=== PATIENT | female | born 1965 ===

== ENCOUNTER 2016-08-08 09:31 | Emergency (ER) | payer MEDICAID, SELFPAY ==
[2016-08-08 09:43] VITALS: BMI 30.2
[2016-08-08 10:44] LABS: RBC URINE 1 /hpf (0-3); URINE BILIRUBIN NEGATIVE (NEGATIVE); URINE BLOOD NEGATIVE (NEGATIVE); URINE COLOR Yellow (YELLOW); URINE GLUCOSE (UA) NORMAL (Normal); URINE KETONE NEGATIVE (NEGATIVE); URINE LEUKOCYTE ESTERASE TRACE Leu/uL (Negative); URINE PROTEIN NEGATIVE (NEGATIVE); URINE UROBILINOGEN NORMAL mg/dL (0.2-1.0); WBC URINE 4 /hpf (0-5)
--- NOTE | 2016-08-08 10:52 | C.PDOC ---
Time Seen by Provider: 08/08/16 10:36 Chief Complaint (Nursing): Female Genitourinary Past Medical History Vital Signs: Last Vital Signs Temp 98.1 F 08/08/16 09:43 Pulse 72 08/08/16 09:43 Resp 16 08/08/16 09:43 BP 162/82 H 08/08/16 09:43 Pulse Ox 100 08/08/16 09:43 Family History: States: Unknown Family Hx - Social History Hx Tobacco Use: No Hx Alcohol Use: No Hx Substance Use: No - Immunization History Hx Tetanus Toxoid Vaccination: No Hx Influenza Vaccination: No Hx Pneumococcal Vaccination: No ED Course And Treatment O2 Sat by Pulse Oximetry: 100
--- NOTE | 2016-08-08 12:05 | C.PDOC ---
History Of Present Illness 51 year old patient presents to the ED complaining of right hip pain radiating to the right heel since yesterday. Patient denies any trauma, fever, numbness, weakness, or incontinence. Time Seen by Provider: 08/08/16 10:36 Chief Complaint (Nursing): Female Genitourinary History Per: Patient History/Exam Limitations: language barrier (ER nurse translated) Onset/Duration Of Symptoms: Days (yesterday) Current Symptoms Are (Timing): Still Present Quality Of Discomfort: "Pain" Severity: Mild Pain Scale Rating Of: 3 Associated Symptoms: None Recent travel outside of the [place]: No Past Medical History Reviewed: Historical Data, Nursing Documentation, Vital Signs Vital Signs: Last Vital Signs Temp 98.1 F 08/08/16 09:43 Pulse 72 08/08/16 09:43 Resp 16 08/08/16 09:43 BP 162/82 H 08/08/16 09:43 Pulse Ox 100 08/08/16 12:05 Family History: States: Unknown Family Hx - Social History Hx Tobacco Use: No Hx Alcohol Use: No Hx Substance Use: No - Immunization History Hx Tetanus Toxoid Vaccination: No Hx Influenza Vaccination: No Hx Pneumococcal Vaccination: No Review Of Systems Except As Marked, All Systems Reviewed And Found Negative. Constitutional: Negative for: Fever Respiratory: Negative for: Shortness of Breath Genitourinary: Negative for: Incontinence Musculoskeletal: Positive for: Other (right hip pain radiating down right leg) Neurological: Negative for: Weakness, Numbness Physical Exam - Physical Exam Appears: Non-toxic, No Acute Distress Skin: Warm, Dry Head: Atraumatic, Normacephalic Neck: Normal ROM, Supple Chest: Symmetrical Cardiovascular: Rhythm Regular Respiratory: Normal Breath Sounds, No Rales, No Rhonchi, No Wheezing Gastrointestinal/Abdominal: Soft, No Tenderness Back: Normal Inspection, No CVA Tenderness, No Vertebral Tenderness Extremity: Normal ROM, No Tenderness, No Pedal Edema, No Calf Tenderness, No Deformity, No Swelling Neurological/Psych: Oriented x3, Normal Motor, Normal Sensation Gait: Steady ED Course And Treatment O2 Sat by Pulse Oximetry: 100 (room air) Pulse Ox Interpretation: Normal - Other Rad r hip X-Ray: Interpreted by Me (neg) Reevaluation Time: 12:03 Reassessment Condition: Improved Disposition Counseled Patient/Family Regarding: Studies Performed, Diagnosis, Need For Followup, Rx Given - Disposition Referrals: [facility] [Outside] [facility] [Outside] Disposition: HOME/ ROUTINE Disposition Time: 12:03 Condition: IMPROVED Prescriptions: Cyclobenzaprine [Flexeril] 10 mg PO TID #15 tab Dexamethasone 12 mg PO ONCE #2 tab Ibuprofen [Motrin] 600 mg PO Q6 #30 tab Instructions: Sciatica (ED) Print Language: PUERTO RICAN - Clinical Impression Clinical Impression: Hip pain - Scribe Statement The provider has reviewed the documentation as recorded by the Dara Koch Provider Attestation: All medical record entries made by the Marleneibcarol were at my direction and personally dictated by me. I have reviewed the chart and agree that the record accurately reflects my personal performance of the history, physical exam, medical decision making, and the department course for this patient. I have also personally directed, reviewed, and agree with the discharge instructions and disposition.
[2016-08-08 12:13] VITALS: BP 171/96; PULSE 63; RESP 18; TEMP 97.4
[2016-08-08 12:16] VITALS: O2SAT 100
--- NOTE | 2016-08-08 12:31 | RAD ---
PROCEDURE: Right Hip Radiographs. HISTORY: pain COMPARISON: None. FINDINGS: BONES: Normal. No fracture. JOINTS: Mild osteoarthritic changes. SOFT TISSUES: Normal. OTHER FINDINGS: None. IMPRESSION: Normal radiographs of right hip.
== END 2016-08-08 12:13 | disposition home or self-care (01) ==
LOC: C.ER 09:31
DX: M25.551 Pain in right hip (principal)
CPT/HCPCS: 73502; 81001; 87086; 96372; 99284; J1885

== ENCOUNTER 2016-08-15 11:14 | Emergency (ER) | payer SELFPAY ==
[2016-08-15 11:15] VITALS: BMI 30.2
[2016-08-15 11:31] VITALS: BP 158/84; PULSE 67; RESP 16; TEMP 98.5; O2SAT 99
[2016-08-15 12:24] LABS: RBC URINE 2 /hpf (0-3); URINE BILIRUBIN NEGATIVE (NEGATIVE); URINE BLOOD NEGATIVE (NEGATIVE); URINE COLOR Yellow (YELLOW); URINE GLUCOSE (UA) NORMAL (Normal); URINE KETONE NEGATIVE (NEGATIVE); URINE LEUKOCYTE ESTERASE NEG Leu/uL (Negative); URINE PROTEIN NEGATIVE (NEGATIVE); URINE UROBILINOGEN NORMAL mg/dL (0.2-1.0); WBC URINE 3 /hpf (0-5)
--- NOTE | 2016-08-15 12:41 | C.PDOC ---
Time Seen by Provider: 08/15/16 11:48 Chief Complaint (Nursing): Female Genitourinary Past Medical History Vital Signs: Last Vital Signs Temp 98.5 F 08/15/16 11:30 Pulse 67 08/15/16 11:30 Resp 16 08/15/16 11:30 BP 158/84 H 08/15/16 11:30 Pulse Ox 99 08/15/16 11:30 Family History: States: Unknown Family Hx - Social History Hx Tobacco Use: No Hx Alcohol Use: No Hx Substance Use: No - Immunization History Hx Tetanus Toxoid Vaccination: No Hx Influenza Vaccination: No Hx Pneumococcal Vaccination: No ED Course And Treatment O2 Sat by Pulse Oximetry: 99 Disposition Counseled Patient/Family Regarding: Diagnosis, Need For Followup, Rx Given - Disposition Disposition: HOME/ ROUTINE Disposition Time: 12:36 Condition: STABLE Additional Instructions: Aplicar crema gosia veces por semana para hidratar Use lubricante segn sea necesario... Prescriptions: Glycerin/Min Oil/Polycarbophil [Feminine Moist-Lubricating Gel] 53.6 gm VG PRN PRN #1 gel.w.appl PRN Reason: Dry Skin Glycerin/Min Oil/Polycarbophil [Replens] 1 cre VG Q72 #1 cre Instructions: Menopause (ED) Print Language: K[place] - Clinical Impression Clinical Impression: Vaginal atrophy
--- NOTE | 2016-08-15 12:47 | C.PDOC ---
History Of Present Illness 51-year-old female, presents to the emergency department with complaints of vaginal dryness. Patient states she has been experiencing vaginal irritation, dryness and itching for the past several months. Patient notes intermittent episodes of dysuria for the past few months, and discomfort with intercourse. Denies any hematuria, vaginal bleeding, back pain, or any other associated symptoms. No other complaints at this time. Time Seen by Provider: 08/15/16 11:48 Chief Complaint (Nursing): Female Genitourinary History Per: Patient History/Exam Limitations: no limitations Onset/Duration Of Symptoms: Days, Intermittent Episodes Current Symptoms Are (Timing): Still Present Past Medical History Reviewed: Historical Data, Nursing Documentation, Vital Signs Vital Signs: Last Vital Signs Temp 98.5 F 08/15/16 11:30 Pulse 67 08/15/16 11:30 Resp 16 08/15/16 11:30 BP 158/84 H 08/15/16 11:30 Pulse Ox 99 08/15/16 12:52 - Medical History PMH: No Chronic Diseases Family History: States: No Known Family Hx - Social History Hx Tobacco Use: No Hx Alcohol Use: No Hx Substance Use: No - Immunization History Hx Tetanus Toxoid Vaccination: No Hx Influenza Vaccination: No Hx Pneumococcal Vaccination: No Review Of Systems Except As Marked, All Systems Reviewed And Found Negative. Constitutional: Negative for: Fever Gastrointestinal: Negative for: Vomiting Genitourinary: Positive for: Dysuria, Vaginal Discharge, Other (dryness). Negative for: Pelvic Pain Musculoskeletal: Negative for: Back Pain Physical Exam - Physical Exam Appears: Non-toxic, No Acute Distress Skin: Warm, Dry, No Rash Head: Atraumatic, Normacephalic Eye(s): bilateral: Normal Inspection, EOMI Oral Mucosa: Moist Lips: Normal Appearing Neck: Normal ROM Chest: Symmetrical Cardiovascular: Rhythm Regular Respiratory: No Accessory Muscle Use, No Wheezing Back: No CVA Tenderness Pelvic: Normal External Exam, Other (vaginal atrophy) Extremity: Normal ROM Neurological/Psych: Oriented x3, Normal Speech Gait: Steady ED Course And Treatment O2 Sat by Pulse Oximetry: 99 Pulse Ox Interpretation: Normal Medical Decision Making Medical Decision Making: Impression Vaginal irritation and dryness Plan: * Urine Culture/Urinalysis * Reassess and Disposition UA negative Will prescribe lubricant for patient to use Disposition - Disposition Disposition: HOME/ ROUTINE Disposition Time: 12:35 Condition: STABLE Additional Instructions: Aplicar crema gosia veces por semana para hidratar Use lubricante segn sea necesario... Prescriptions: Glycerin/Min Oil/Polycarbophil [Feminine Moist-Lubricating Gel] 53.6 gm VG PRN PRN #1 gel.w.appl PRN Reason: Dry Skin Glycerin/Min Oil/Polycarbophil [Replens] 1 cre VG Q72 #1 cre Instructions: Menopause (ED) Print Language: GERMAN - Clinical Impression Clinical Impression: Vaginal atrophy - Scribe Statement The provider has reviewed the documentation as recorded by the Scribe Justin Hussein
== END 2016-08-15 12:55 | disposition home or self-care (01) ==
LOC: C.ER 11:14
DX: N95.2 Postmenopausal atrophic vaginitis (principal)

== ENCOUNTER 2016-08-22 10:36 | Emergency (ER) | payer SELFPAY ==
[2016-08-22 10:54] VITALS: O2SAT 98
[2016-08-22 11:31] VITALS: RESP 18; TEMP 98; BMI 28.3
--- NOTE | 2016-08-22 11:58 | RAD ---
PROCEDURE: Radiographs of the Lumbar Spine. HISTORY: pain COMPARISON: No prior. FINDINGS: BONES: Vertebral bodies are maintained height. Transverse processes and posterior elements appear intact. Minimal dextroscoliotic curvature of the lumbar spine is noted. DISC SPACES: Unremarkable. OTHER FINDINGS: None. IMPRESSION: Minimal dextroscoliosis. Otherwise unremarkable.
[2016-08-22 12:06] LABS: RBC URINE 1 /hpf (0-3); URINE BACTERIA RARE (<OCC); URINE BILIRUBIN NEGATIVE (NEGATIVE); URINE BLOOD NEGATIVE (NEGATIVE); URINE COLOR Straw (YELLOW); URINE GLUCOSE (UA) NORMAL (Normal); URINE KETONE NEGATIVE (NEGATIVE); URINE LEUKOCYTE ESTERASE NEG Leu/uL (Negative); URINE PROTEIN NEGATIVE (NEGATIVE); URINE UROBILINOGEN NORMAL mg/dL (0.2-1.0); WBC URINE 3 /hpf (0-5)
--- NOTE | 2016-08-22 12:16 | C.PDOC ---
History Of Present Illness 51 yr old female presents to the ER for evaluation of right lower back pain for the past 2 days. Patient reports the pain is intermittent and radiates to the right buttock and right leg. Denies trauma, injury, fever, chest pain, SOB, nausea, vomiting, abdominal pain, constipation, dysuria, incontinence, saddle anesthesia, weakness, sensory or vascular deficits to Right leg. Ambulate to Ed for evaluation, appears in pain. Time Seen by Provider: 08/22/16 11:19 Chief Complaint (Nursing): Lower Extremity Problem/Injury History/Exam Limitations: no limitations Onset/Duration Of Symptoms: Intermittent Episodes (2 days ) Past Medical History Reviewed: Historical Data, Nursing Documentation, Vital Signs Vital Signs: Last Vital Signs Temp 98.0 F 08/22/16 11:30 Pulse 73 08/22/16 11:30 Resp 18 08/22/16 11:30 BP 143/82 08/22/16 11:30 Pulse Ox 98 08/22/16 12:28 Family History: States: No Known Family Hx - Social History Hx Tobacco Use: No Hx Alcohol Use: No Hx Substance Use: No - Immunization History Hx Tetanus Toxoid Vaccination: No Hx Influenza Vaccination: No Hx Pneumococcal Vaccination: No Review Of Systems Except As Marked, All Systems Reviewed And Found Negative. Constitutional: Negative for: Fever Cardiovascular: Negative for: Chest Pain Respiratory: Negative for: Shortness of Breath Gastrointestinal: Negative for: Nausea, Vomiting, Abdominal Pain, Constipation Genitourinary: Negative for: Dysuria, Incontinence Musculoskeletal: Positive for: Back Pain (Right lower back pain ) Neurological: Negative for: Weakness, Numbness Physical Exam - Physical Exam Appears: Well, Non-toxic, No Acute Distress Skin: Warm, Dry, Rash (Vesicular rash in group right lumbar paraspinal area overlying Right L3-4 dermatome . No cellulitis. No fluctuance. ) Eye(s): bilateral: PERRL Oral Mucosa: Moist Throat: Normal Neck: Normal ROM, Supple Chest: Symmetrical, No Tenderness Cardiovascular: Rhythm Regular, No Murmur Respiratory: No Rales, No Rhonchi, No Stridor, No Wheezing Gastrointestinal/Abdominal: Soft, No Tenderness, No Distention, No Guarding Back: No CVA Tenderness, Paraspinal Tenderness (Diffuse right lumbar paraspinal tenderness , no palpable deformity.) Extremity: No Pedal Edema, No Calf Tenderness, No Swelling Neurological/Psych: Oriented x3, Normal Speech, Normal Motor, Normal Sensation, Normal Reflexes ED Course And Treatment - Laboratory Results Lab Interpretation: Normal (UA results) O2 Sat by Pulse Oximetry: 98 Pulse Ox Interpretation: Normal - Other Rad X-Ray - LS Spine X-Ray: Viewed By Me, Read By Radiologist Interpretation: Accession No. : [id number]. Patient Name / ID : EVANS MONTANO / [id number]. Exam Date : 08/22/2016 11:36:28 ( Approved ). Study Comment : Sex / Age : F / 51Y. Creator : Champ Hood MD. Dictator : Champ Hood MD. Materials Scheduler : Combine Driver : Champ Hood MD. Approver2 : Report Date : 08/22/2016 11:56:52. My Comment : . PROCEDURE : Radiographs of the Lumbar Spine. HISTORY: pain. COMPARISON: No prior. FINDINGS: BONES: Vertebral bodies are maintained height. Transverse processes and posterior elements appear intact. Minimal dextroscoliotic curvature of the lumbar spine is noted. DISC SPACES: Unremarkable. OTHER FINDINGS: None. IMPRESSION: Minimal dextroscoliosis. Otherwise unremarkable. Progress Note: On re-evaluation, pt is afebrile, hemodynamicaly stable. Non- toxic. PulsEOx 98% rA. ENT: no acute finidngs. neck: supple. Abd: benign. back: exam c/w Right lumbar paraspinal tenderness with skin rash likely H.Zoster , no cellulitis. Neurologicaly intact. UA results review- normal. L-spine xray review and appears without acute abnormalities. Pt advised on course of ds , and ref. to f/u with PMD in 2-3 days for re-eavl. return if any worsening or new changes. Medical Decision Making Medical Decision Making: PLAN: * X-Ray - LS Spine * Urinalysis * Motrin PO * Tramadol PO * Valium PO * Zovirax PO Disposition Counseled Patient/Family Regarding: Studies Performed, Diagnosis, Need For Followup, Rx Given - Disposition Referrals: Clinic,Med Surg [Primary Care Provider] - Disposition: HOME/ ROUTINE Disposition Time: 12:13 Condition: STABLE Additional Instructions: Take medication as prescribed Light duty to lower back, avoid heavy lifting, bending, etc Follow up with PMD in 2-3 days for re-evaluation. Return to ED if any worsening or new changes. 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 - Scribe Statement The provider has reviewed the documentation as recorded by the Scribcarol Cameron All medical record entries made by the Dara were at my direction and personally dictated by me. I have reviewed the chart and agree that the record accurately reflects my personal performance of the history, physical exam, medical decision making, and the department course for this patient. I have also personally directed, reviewed, and agree with the discharge instructions and disposition.
[2016-08-22 14:05] VITALS: BP 132/72; PULSE 75
== END 2016-08-22 14:05 | disposition home or self-care (01) ==
LOC: C.ER 10:36 → SUPCPDRO 10:36 → C.ER 14:05
DX: M54.16 Radiculopathy, lumbar region (principal); B02.9 Zoster without complications

== ENCOUNTER 2017-02-25 21:32 | Inpatient (IN) | payer OTHER ==
[2017-02-25 21:32] VITALS: BMI 31.2
[2017-02-25] MEDS ORDERED: Lactated Ringer's 1,000 ML IV ONE (22:28)
--- NOTE | 2017-02-25 22:35 | C.PDOC ---
History Of Present Illness pt presents with increased fever, some dysuria worsening over the last few days. . Speaking in complete sentences. did not take any medication Time Seen by Provider: 02/25/17 22:01 Chief Complaint (Nursing): Fever History Per: Patient History/Exam Limitations: no limitations Onset/Duration Of Symptoms: Days Current Symptoms Are (Timing): Still Present Severity: Moderate Pain Scale Rating Of: 3 Reports Recently: Treated By A Physician Recent travel outside of the [place]: No Additional History Per: Patient Past Medical History Reviewed: Historical Data, Nursing Documentation, Vital Signs Vital Signs: Last Vital Signs Temp 100.3 F H 02/25/17 21:48 Pulse 89 02/26/17 02:22 Resp 20 02/26/17 02:22 BP 119/71 02/26/17 02:22 Pulse Ox 95 02/26/17 02:22 - Medical History PMH: HTN Family History: States: No Known Family Hx - Social History Hx Tobacco Use: No Hx Alcohol Use: No Hx Substance Use: No - Immunization History Hx Tetanus Toxoid Vaccination: No Hx Influenza Vaccination: No Hx Pneumococcal Vaccination: No Review Of Systems Constitutional: Positive for: Fever, Chills ENT: Negative for: Throat Pain Cardiovascular: Negative for: Chest Pain Respiratory: Negative for: Cough, Shortness of Breath Gastrointestinal: Negative for: Nausea, Vomiting Genitourinary: Positive for: Dysuria. Negative for: Pelvic Pain Musculoskeletal: Negative for: Back Pain Skin: Negative for: Rash, Lesions, Jaundice, Bruising Neurological: Negative for: Weakness Psych: Negative for: Anxiety Physical Exam - Physical Exam Appears: Non-toxic, No Acute Distress Skin: Warm, Dry Head: Normacephalic Eye(s): bilateral: Normal Inspection Oral Mucosa: Moist Neck: Trachea Midline, Supple Chest: Symmetrical Cardiovascular: Rhythm Regular Respiratory: No Rales, No Rhonchi, No Wheezing Gastrointestinal/Abdominal: Soft, Tenderness (rlq), No Distention, No Guarding, No Rebound Back: No CVA Tenderness Extremity: Normal ROM Extremity: Bilateral: Atraumatic, No Pedal Edema Pulses: Left Dorsalis Pedis: Normal, Right Dorsalis Pedis: Normal Neurological/Psych: Oriented x3, Normal Speech, Normal Cognition Gait: Steady ED Course And Treatment - Laboratory Results Result Diagrams: 02/25/17 22:53 02/25/17 22:53 O2 Sat by Pulse Oximetry: 98 Pulse Ox Interpretation: Normal Progress Note: surgical services tech saw and examined the pt Disposition Discussed With Dr.: Hung Tolbert Comment: accepted the pt on his service and took over the care at 2:43 AM Doctor Will See Patient In The: ED Counseled Patient/Family Regarding: Studies Performed, Diagnosis - Disposition Disposition: HOSPITALIZED Disposition Time: 22:31 Condition: FAIR Forms: [employer] ([place]) - POA Present On Arrival: None - Clinical Impression Clinical Impression: Abdominal pain, Acute appendicitis Decision To Admit - Pt Status Changed To: Hospital Disposition Of: Inpatient - Admit Certification Admit to Inpatient:: After my assessment, the patient will require hospitalization for at least two midnights. This is because of the severity of symptoms shown, intensity of services needed, and/or the medical risk in this patient being treated as an outpatient. - InPatient: Physician Admission Certification: I certify that this patient requires 2 or more midnights of care for the following reason:: After my assessment, the patient will require hospitalization for at least two midnights. This is because of the severity of symptoms shown, intensity of services needed, and/or the medical risk in this patient being treated as an outpatient. - . Bed Request Type: Regular Admitting Physician: Hung Tolbert Patient Diagnosis: Abdominal pain, Acute appendicitis
[2017-02-25 22:45] LABS: RBC URINE 11 /hpf (0-3); URINE BACTERIA RARE (<OCC); URINE BILIRUBIN NEGATIVE (NEGATIVE); URINE BLOOD 2+ (NEGATIVE); URINE COLOR Straw (YELLOW); URINE GLUCOSE (UA) NORMAL (Normal); URINE KETONE NEGATIVE (NEGATIVE); URINE LEUKOCYTE ESTERASE NEG Leu/uL (Negative); URINE PROTEIN NEGATIVE (NEGATIVE); URINE UROBILINOGEN NORMAL mg/dL (0.2-1.0); WBC URINE < 1 /hpf (0-5)
[2017-02-25 22:48] LABS: VENOUS BLOOD GAS BASE EXCESS 5.1 mmol/L (0.0-2.0); VENOUS BLOOD GAS PCO2 47 mmHg (40-60); VENOUS BLOOD PH 7.42 (7.32-7.43)
[2017-02-25 23:03] LABS: BASO % 0.4 % (0.0-2.0); EOS # 0.5 K/uL (0.0-0.7); EOS % 4.3 % (0.0-4.0); HEMATOCRIT 41.4 % (34.0-47.0); LYMPH # 0.9 K/uL (1.0-4.3); LYMPH % 8.6 % (20.0-40.0); MEAN CELL VOLUME 83.3 fL (81.0-99.0); MEAN CORPUSCULAR HEMOGLOBIN 28.7 pg (27.0-31.0); MEAN CORPUSCULAR HGB CONC 34.4 g/dL (33.0-37.0); MEAN PLATELET VOLUME 8.9 fL (7.2-11.7); MONO # 0.5 K/uL (0.0-0.8); MONO % 4.3 % (0.0-10.0); NRBC % 0.1 % (0.0-2.0); PLATELET COUNT 169 K/uL (130-400); RED CELL DISTRIBUTION WIDTH 13.1 % (11.5-14.5); WHITE BLOOD COUNT 10.8 K/uL (4.8-10.8)
[2017-02-25 23:14] LABS: ALB/GLOB RATIO 1.3 (1.0-2.1); ALKALINE PHOSPHATASE 117 U/L (38-126); ALT/SGPT 55 U/L (9-52); AST/SGOT 38 U/L (14-36); BILIRUBIN,TOTAL 1.4 mg/dL (0.2-1.3); BLOOD UREA NITROGEN 10 mg/dL (7-17); CALCIUM 8.8 mg/dl (8.6-10.4); CARBON DIOXIDE 26 mmol/L (22-30); CHLORIDE 95 mmol/L (98-107); GFR AFRICAN-AMERICAN > 60; GLUCOSE,RANDOM 104 mg/dL (65-105); POTASSIUM 3.7 mmol/L (3.6-5.2); SODIUM 136 mmol/L (132-148); TOTAL PROTEIN 8.2 g/dL (6.3-8.3)
[2017-02-25 23:25] LABS: EOSINOPHIL 6 % (0-4); NEUTROPHIL 88 % (50-75); TOTAL CELLS COUNTED 100
[2017-02-26] MEDS ORDERED: Iodixanol 320 MG/ML 100 ML BOTTLE IV ONE (00:34)
--- NOTE | 2017-02-26 01:23 | CT ---
EXAM: CT Abdomen and Pelvis With Intravenous Contrast CLINICAL HISTORY: 51 years old, female; Pain; Abdominal pain; Periumbilical; Additional info: B/l lower abd pain, ? dysuria TECHNIQUE: Axial computed tomography images of the abdomen and pelvis with intravenous contrast. All CT scans at this facility use one or more dose reduction techniques, viz.: automated exposure control; ma/kV adjustment per patient size (including targeted exams where dose is matched to indication; i.e. head); or iterative reconstruction technique. Coronal and sagittal reformatted images were created and reviewed. CONTRAST: 100 mL of [id number] administered intravenously. COMPARISON: No relevant prior studies available. FINDINGS: Lower thorax: The bilateral lung bases are clear. ABDOMEN: Liver: The liver is enlarged. Gallbladder and bile ducts: The gallbladder is decompressed. No calcified stones. No significant intra- or extrahepatic biliary ductal dilation. Pancreas: Enhances homogeneously. No ductal dilation. No discrete mass. Spleen: The spleen is enlarged measuring 14 cm in longitudinal dimension. Adrenals: No acute findings. Kidneys and ureters: No acute findings. No hydronephrosis or renal calculi. No discrete solid mass. PELVIS: Bladder: The bladder is distended, and otherwise unremarkable. Reproductive: No acute findings. Appendix: The appendix is distended measuring anywhere from 8-10 mm in diameter. Trace surrounding inflammatory change is present. ABDOMEN and PELVIS: Stomach and bowel: No obstruction. No mucosal thickening. A fat containing umbilical hernia is identified, extending to the left of midline. Peritoneum: As above. Lymph nodes: No pathologically enlarged lymph nodes. Vasculature: Unremarkable. Bones: No acute fracture. IMPRESSION: Distention of the appendix with trace surrounding inflammatory change. These findings in the appropriate clinical scenario may represent early appendicitis, fluid clinical correlation is needed. Fat containing umbilical hernia. Hepatosplenomegaly.
[2017-02-26] MEDS ORDERED: Piperacillin/Tazobact 3.375 gm 100 ML IVPB STA (01:33)
[2017-02-26] MEDS ORDERED: Piperacill/Tazo 3.375gm in Dex 3.375 GM/50 ML BAG IVPB STA (01:54)
--- NOTE | 2017-02-26 03:06 | CP.PCM.HP ---
History of Present Illness - History of Present Illness History of Present Illness: H&P Surgery- Dr. Tolbert 51F no relevant PMHx presents to [facility] ED w/ sharp RLQ abdominal pain that started Thursday. pain does not radiate anywhere. Patient having associated nausea, non-bloody non-bilious vomiting, subjective fevers. Denies: chills, shortness of breath, chest pain, diarrhea, headaches, numbness/ tingling in extremities PMH: none PSH: denies ALL: NKDA SocialHx: denies ETOH, tobacco, recreational drug use Present on Admission - Present on Admission Any Indicators Present on Admission: No Review of Systems - Review of Systems All systems: reviewed and no additional remarkable complaints except - Constitutional Constitutional: As Per HPI Past Patient History - Infectious Disease Hx of Infectious Diseases: None - Past Social History Smoking Status: Never Smoked - CARDIAC Hx Hypertension: Yes - PSYCHIATRIC Hx Substance Use: No - SURGICAL HISTORY Hx Tubal Ligation: Yes - ANESTHESIA Hx Anesthesia: Yes Hx Anesthesia Reactions: No Meds Allergies/Adverse Reactions: Allergies Allergy/AdvReac Type Severity Reaction Status Date / Time No Known Allergies Allergy Verified 08/15/16 11:30 Physical Exam - Constitutional Appears: Non-toxic, No Acute Distress - Head Exam Head Exam: ATRAUMATIC - Eye Exam Eye Exam: EOMI. absent: Scleral icterus - Respiratory Exam Respiratory Exam: NORMAL BREATHING PATTERN. absent: Accessory Muscle Use, Respiratory Distress - Cardiovascular Exam Cardiovascular Exam: +S1, +S2. absent: Bradycardia, Tachycardia - GI/Abdominal Exam GI & Abdominal Exam: Guarding, Rebound, Soft, Tenderness. absent: Distended, Firm, Hernia, Rigid Additional comments: tender to palpation in RLQ, + mcburneys, + rebound tenderness, +psoas - Extremities Exam Extremities exam: Positive for: normal inspection. Negative for: calf tenderness - Back Exam Back exam: absent: CVA tenderness (L), CVA tenderness (R) - Neurological Exam Neurological exam: Alert, Oriented x3 - Psychiatric Exam Psychiatric exam: Normal Affect Results - Vital Signs Recent Vital Signs: Last Vital Signs Temp 100.3 F H 02/25/17 21:48 Pulse 89 02/26/17 02:22 Resp 20 02/26/17 02:22 BP 119/71 02/26/17 02:22 Pulse Ox 98 02/26/17 02:46 - Labs Result Diagrams: 02/25/17 22:53 02/25/17 22:53 Labs: Laboratory Results - last 24 hr 02/25/17 02/25/17 02/25/17 22:37 22:40 22:53 WBC RBC Hgb Hct MCV MCH MCHC RDW Plt Count MPV Neut % (Auto) Lymph % (Auto) [place] % (Auto) Eos % (Auto) Baso % (Auto) Neut # Lymph # [place] # Eos # Baso # Neutrophils % (Manual) Band Neutrophils % Lymphocytes % (Manual) Monocytes % (Manual) Eosinophils % (Manual) Platelet Estimate pO2 23 L VBG pH 7.42 VBG pCO2 47 VBG HCO3 27.4 VBG Total CO2 31.9 H VBG O2 Sat (Calc) 53.3 VBG Base Excess 5.1 H VBG Potassium 5.0 Sodium 136.0 136 Chloride 102.0 95 L Glucose 118 H Lactate 2.0 FiO2 21.0 Potassium 3.7 Carbon Dioxide 26 Anion Gap 18 BUN 10 Creatinine 0.4 L Est GFR ( Amer) > 60 Est GFR (Non-Af Amer) > 60 Random Glucose 104 Calcium 8.8 Total Bilirubin 1.4 H AST 38 H ALT 55 H Alkaline Phosphatase 117 Total Protein 8.2 Albumin 4.7 Globulin 3.5 Albumin/Globulin Ratio 1.3 Venous Blood Potassium 5.0 Urine Color Straw Urine Clarity Clear Urine pH 6.0 Ur Specific [place] 1.009 Urine Protein Negative Urine Glucose (UA) Normal Urine Ketones Negative Urine Blood 2+ H Urine Nitrate Negative Urine Bilirubin Negative Urine Urobilinogen Normal Ur Leukocyte Esterase Neg Urine WBC (Auto) < 1 Urine RBC (Auto) 11 H Ur Squamous Epith Cells 1 Urine Bacteria Rare 02/25/17 22:53 WBC 10.8 D RBC 4.97 Hgb 14.3 Hct 41.4 MCV 83.3 D MCH 28.7 MCHC 34.4 RDW 13.1 Plt Count 169 MPV 8.9 Neut % (Auto) 82.4 H Lymph % (Auto) 8.6 L [place] % (Auto) 4.3 Eos % (Auto) 4.3 H Baso % (Auto) 0.4 Neut # 8.9 H Lymph # 0.9 L [place] # 0.5 Eos # 0.5 Baso # 0.0 Neutrophils % (Manual) 88 H Band Neutrophils % 1 Lymphocytes % (Manual) 4 L Monocytes % (Manual) 1 Eosinophils % (Manual) 6 H Platelet Estimate Normal pO2 VBG pH VBG pCO2 VBG HCO3 VBG Total CO2 VBG O2 Sat (Calc) VBG Base Excess VBG Potassium Sodium Chloride Glucose Lactate FiO2 Potassium Carbon Dioxide Anion Gap BUN Creatinine Est GFR ( Amer) Est GFR (Non-Af Amer) Random Glucose Calcium Total Bilirubin AST ALT Alkaline Phosphatase Total Protein Albumin Globulin Albumin/Globulin Ratio Venous Blood Potassium Urine Color Urine Clarity Urine pH Ur Specific [place] Urine Protein Urine Glucose (UA) Urine Ketones Urine Blood Urine Nitrate Urine Bilirubin Urine Urobilinogen Ur Leukocyte Esterase Urine WBC (Auto) Urine RBC (Auto) Ur Squamous Epith Cells Urine Bacteria Assessment & Plan - Assessment and Plan (Free Text) Assessment: 51F w/ acute appendicitis Plan: - plan for OR in AM - NPO - IVF/Abx - GI/DVT ppx - AM labs - pain control and anti-emetic PRN - discussed w/ Dr. Didi Vicente PGY1
[2017-02-26] MEDS ORDERED: HYDROmorphone 0.5 mg/0.5 ml ISec IVP PRN ×2 (03:18→11:20)
[2017-02-26] MEDS: Lactated Ringer's 1,000 ML IV SCH ×2 (03:30→22:02)
[2017-02-26] MEDS: Piperacill/Tazo 3.375gm in Dex 3.375 GM/50 ML BAG IVPB SCH ×3 (04:00→21:09)
[2017-02-26] MEDS ORDERED: Bupivacaine-Epi 0.25%-1:200,000 PF Inj ONE (09:30)
[2017-02-26] MEDS ORDERED: Piperacillin/Tazobact 3.375 gm 100 ML IVPB ONE (09:55)
[2017-02-26] MEDS ORDERED: Succinylcholine Chloride 20 mg/ml Syr (5 ml) IV ONE (10:07)
[2017-02-26] MEDS ORDERED: Rocuronium 10 mg/ml (5 ml) ONE (10:07)
[2017-02-26] MEDS ORDERED: Propofol 10 mg/ml Inj (20 ML) ONE (10:07)
[2017-02-26] MEDS ORDERED: Midazolam 2 MG/2 ML VIAL ONE (10:07)
[2017-02-26] MEDS ORDERED: Lactated Ringer's 1,000 ML IV ONE ×3 (10:10→20:45)
[2017-02-26 10:11] LABS: BASO % 0.4 % (0.0-2.0); EOS # 0.1 K/uL (0.0-0.7); HEMATOCRIT 38.1 % (34.0-47.0); LYMPH # 0.8 K/uL (1.0-4.3); LYMPH % 7.9 % (20.0-40.0); MEAN CELL VOLUME 83.3 fL (81.0-99.0); MEAN CORPUSCULAR HEMOGLOBIN 29.2 pg (27.0-31.0); MEAN PLATELET VOLUME 8.8 fL (7.2-11.7); MONO # 0.6 K/uL (0.0-0.8); PLATELET COUNT 132 K/uL (130-400); WHITE BLOOD COUNT 9.6 K/uL (4.8-10.8)
[2017-02-26 10:43] LABS: NEUTROPHIL 66 % (50-75); REACTIVE LYMPHOCYTES 3 % (0-0); TOTAL CELLS COUNTED 100
[2017-02-26] MEDS ORDERED: Neostigmine Methylsulfate 3mg/3ml Syringe IV ONE (10:48)
[2017-02-26 13:01] LABS: ALB/GLOB RATIO 1.4 (1.0-2.1); ALKALINE PHOSPHATASE 92 U/L (38-126); ALT/SGPT 43 U/L (9-52); AST/SGOT 36 U/L (14-36); BILIRUBIN,TOTAL 1.7 mg/dL (0.2-1.3); BLOOD UREA NITROGEN 8 mg/dL (7-17); CALCIUM 8.2 mg/dl (8.6-10.4); CARBON DIOXIDE 25 mmol/L (22-30); CHLORIDE 101 mmol/L (98-107); GFR AFRICAN-AMERICAN > 60; GLUCOSE,RANDOM 110 mg/dL (65-105); POTASSIUM 3.3 mmol/L (3.6-5.2); SODIUM 139 mmol/L (132-148); TOTAL PROTEIN 6.3 g/dL (6.3-8.3)
[2017-02-26] MEDS: HYDROmorphone 0.5 mg/0.5 ml ISec IVP PRN (14:59)
--- NOTE | 2017-02-26 15:15 | PCM.SURG1 ---
Surgeon's Initial Post Op Note - Surgeon's Notes Surgeon: Didi Edger Saw Operator: PGY4 Type of Anesthesia: General Endo Pre-Operative Diagnosis: Acute appendicitis Operative Findings: Acute appendicitis Post-Operative Diagnosis: Acute appendicitis Operation Performed: Laparoscopic appendectomy Specimen/Specimens Removed: Appendix Estimated Blood Loss: EBL {In ML}: 5 Blood Products Given: N/A Drains Used: No Drains Post-Op Condition: Good Date of Surgery/Procedure: 02/26/17 Time of Surgery/Procedure: 10:10
[2017-02-27] MEDS: Piperacill/Tazo 3.375gm in Dex 3.375 GM/50 ML BAG IVPB SCH ×4 (03:24→21:15)
--- NOTE | 2017-02-27 06:02 | OP ---
DATE: 02/26/2017 PREOPERATIVE DIAGNOSIS: Acute appendicitis. POSTOPERATIVE DIAGNOSIS: Acute appendicitis. PROCEDURE PERFORMED: Laparoscopic appendectomy. SURGEON: Hung Tolbert MD. ASSEM[employer]ER [employer]ING: . FINDINGS: The appendix was slightly edematous. It was very long, it was swollen, but there was no gross perforation. The pelvis appeared to be within normal limits. The left and right tubes were visualized. There were no evidence of any adnexal masses. The sigmoid that was visualized was normal. There was no evidence of any inflammatory reaction around the area. Gallbladder is thin walled with no evidence of infection. DESCRIPTION OF PROCEDURE: Under general anesthesia, patient was prepared and draped in the usual sterile fashion. CO2 was insufflated through a Veress needle inserted in the umbilical area. This was inflated to about 15 mmHg pressure. A 12 mm trocar was then inserted in the umbilical area and through which a laparoscope was inserted. Under direct vision, a 5 mm left lower quadrant port and a 5 mm suprapubic port was inserted. Patient was placed in a Trendelenburg position, turned over slightly towards the left side. The appendix was then visualized, it was identified all the way down to the base. Mesoappendix was dissected with the aid of the suture Endo PRASANNA and the base of the appendix was treated in a similar fashion. No bleeding was noted at this part of the procedure. The appendix was then placed in an EndoCatch, was extracted through the umbilical port. Further inspection was done inside the peritoneal cavity especially around the pelvis, no pathology was found. Therefore, CO2 was allowed to escape from the peritoneal cavity after inspecting the operative site. Trocar was removed, the wound closed in a routine fashion. The estimated blood loss probably about 2 mL. No complications. Hung Tolbert MD
[2017-02-27 07:05] LABS: ALB/GLOB RATIO 0.9 (1.0-2.1); ALKALINE PHOSPHATASE 62 U/L (38-126); ALT/SGPT 41 U/L (9-52); AST/SGOT 20 U/L (14-36); BILIRUBIN,TOTAL 0.8 mg/dL (0.2-1.3); BLOOD UREA NITROGEN 8 mg/dL (7-17); CALCIUM 7.4 mg/dl (8.6-10.4); CARBON DIOXIDE 31 mmol/L (22-30); CHLORIDE 101 mmol/L (98-107); GFR AFRICAN-AMERICAN > 60; GLUCOSE,RANDOM 115 mg/dL (65-105); POTASSIUM 3.3 mmol/L (3.6-5.2); SODIUM 135 mmol/L (132-148); TOTAL PROTEIN 5.8 g/dL (6.3-8.3)
[2017-02-27 07:35] LABS: EOS # 0.1 K/uL (0.0-0.7); MEAN CORPUSCULAR HGB CONC 34.4 g/dL (33.0-37.0); MEAN PLATELET VOLUME 8.9 fL (7.2-11.7); MONO # 0.7 K/uL (0.0-0.8); NRBC % 0.1 % (0.0-2.0); WHITE BLOOD COUNT 8.9 K/uL (4.8-10.8)
[2017-02-27 07:50] LABS: BASO % 0.1 % (0.0-2.0); EOS % 0.7 % (0.0-4.0); HEMATOCRIT 24.2 % (34.0-47.0); LYMPH # 1.6 K/uL (1.0-4.3); LYMPH % 18.4 % (20.0-40.0); MEAN CELL VOLUME 83.7 fL (81.0-99.0); MEAN CORPUSCULAR HEMOGLOBIN 28.8 pg (27.0-31.0); MONO % 7.6 % (0.0-10.0); RED CELL DISTRIBUTION WIDTH 13.1 % (11.5-14.5)
[2017-02-27] MEDS ORDERED: Oxycodone/Acetaminophen 5/325 mg Tab PO PRN (09:37)
[2017-02-27] MEDS ORDERED: Lactated Ringer's 1,000 ML IV ONE (09:57)
--- NOTE | 2017-02-27 10:19 | CP.PCM.PN ---
Subjective - Date & Time of Evaluation Date of Evaluation: 02/27/17 Time of Evaluation: 06:45 - Subjective Subjective: Gen Sx: Dr Tolbert Pt S&E. Resting comfortably. Reports minimal abdominal pain. Tolerating diet. Pt reports she had some dizziness last night. Denies n/v, f/c, sob or chest pain. Objective - Vital Signs/Intake and Output Vital Signs (last 24 hours): Temp Pulse Resp BP Pulse Ox 98.3 F 87 22 129/83 92 L 02/27/17 10:14 02/27/17 10:14 02/27/17 10:14 02/27/17 10:14 02/27/17 10:14 Intake and Output: 02/27/17 02/27/17 06:59 18:59 Intake Total 470 Balance 470 - Medications Medications: Current Medications Famotidine (Pepcid) 20 mg IVP BID [facility] Last Admin: 02/26/17 12:09 Dose: 20 mg Hydromorphone HCl (Dilaudid) 0.5 mg IVP Q5M PRN PRN Reason: Pain, moderate (4-7) Last Admin: 02/26/17 14:59 Dose: 0.5 mg Piperacillin Sod/Tazobactam Sod (Zosyn 3.375 Gm Iv Premix) 3.375 gm in 50 mls @ 100 mls/hr IVPB Q6H [facility] Last Admin: 02/27/17 03:24 Dose: 100 mls/hr Lactated Ringer's (Lactated Ringer's) 1,000 mls @ 1,000 mls/hr IV .Q1H ONE Stop: 02/27/17 10:56 Ondansetron HCl (Zofran Inj) 4 mg IVP Q4 PRN PRN Reason: Nausea/Vomiting Last Admin: 02/26/17 19:01 Dose: 4 mg Oxycodone/Acetaminophen (Percocet 5/325 Mg Tab) 1 tab PO Q4H PRN PRN Reason: Pain, Mild (1-3) Stop: 03/02/17 09:38 Pneumococcal Polyvalent Vaccine (Pneumovax 23 Vaccine) 0.5 ml IM .ONCE ONE Stop: 03/01/17 10:01 - Labs Labs: 02/27/17 06:42 02/27/17 06:42 - Constitutional Appears: Non-toxic, No Acute Distress - ENT Exam ENT Exam: Mucous Membranes Moist - Respiratory Exam Respiratory Exam: absent: Accessory Muscle Use, Respiratory Distress - Cardiovascular Exam Cardiovascular Exam: REGULAR RHYTHM. absent: Tachycardia - GI/Abdominal Exam GI & Abdominal Exam: Soft, Tenderness (post-op and appropriate). absent: Distended, Firm Additional comments: incisions c/d/i - Neurological Exam Neurological Exam: Alert, Awake, Oriented x3 - Psychiatric Exam Psychiatric exam: Normal Affect, Normal Mood - Skin Skin Exam: Normal Color, Warm Assessment and Plan - Assessment and Plan (Free Text) Assessment: 51F POD#1 s/p lap appy Plan: pt clinically doing well HgB today showed significant drop - repeat confirmed likely pt had post-op intrabdominal bleeding - now stabilized - hemodynamically stable will repeat hgb tomorrow and if remains stable pt can be d/c with outpatient follow up on abx d/w Dr Didi Umanzor, PGY3
[2017-02-27] MEDS: Potassium Chloride 20 mEq ER Tab PO SCH (12:00)
[2017-02-28] MEDS: HYDROmorphone 0.5 mg/0.5 ml ISec IVP PRN (01:32)
[2017-02-28] MEDS: Piperacill/Tazo 3.375gm in Dex 3.375 GM/50 ML BAG IVPB SCH ×2 (04:18→09:46)
[2017-02-28 08:11] LABS: HEMATOCRIT 23.3 % (34.0-47.0); MEAN CELL VOLUME 84.2 fL (81.0-99.0); MEAN CORPUSCULAR HEMOGLOBIN 29.1 pg (27.0-31.0); MEAN CORPUSCULAR HGB CONC 34.6 g/dL (33.0-37.0); MEAN PLATELET VOLUME 8.3 fL (7.2-11.7); RED CELL DISTRIBUTION WIDTH 13.2 % (11.5-14.5); WHITE BLOOD COUNT 7.1 K/uL (4.8-10.8)
[2017-02-28 08:40] LABS: BLOOD UREA NITROGEN 7 mg/dL (7-17); CALCIUM 7.6 mg/dl (8.6-10.4); CARBON DIOXIDE 32 mmol/L (22-30); CHLORIDE 103 mmol/L (98-107); GFR AFRICAN-AMERICAN > 60; GLUCOSE,RANDOM 122 mg/dL (65-105); POTASSIUM 3.7 mmol/L (3.6-5.2); SODIUM 139 mmol/L (132-148)
[2017-02-28 08:59] VITALS: BP 129/74; PULSE 71; RESP 18; TEMP 97.7; O2SAT 100
[2017-02-28] MEDS: Potassium Chloride 20 mEq ER Tab PO SCH (09:45)
--- NOTE | 2017-02-28 10:46 | CP.PCM.DIS ---
Provider - Provider Date of Admission: 02/26/17 02:41 Attending physician: Hung Tolbert MD Primary care physician: Didi Consults: None Time Spent in preparation of Discharge (in minutes): 35 Diagnosis - Discharge Diagnosis (1) S/P laparoscopic appendectomy Status: Acute Hospital Course - Lab Results Lab Results: Micro Results 02/25/17 22:45 Blood Blood Culture - Preliminary NO GROWTH AFTER 48 HOURS 02/25/17 23:15 Blood Blood Culture - Preliminary NO GROWTH AFTER 48 HOURS Most Recent Lab Values WBC 7.1 K/uL (4.8-10.8) 02/28/17 08:05 RBC 2.76 Mil/uL (3.80-5.20) L 02/28/17 08:05 Hgb 8.0 g/dL (11.0-16.0) L 02/28/17 08:05 Hct 23.3 % (34.0-47.0) L 02/28/17 08:05 MCV 84.2 fL (81.0-99.0) 02/28/17 08:05 MCH 29.1 pg (27.0-31.0) 02/28/17 08:05 MCHC 34.6 g/dL (33.0-37.0) 02/28/17 08:05 RDW 13.2 % (11.5-14.5) 02/28/17 08:05 Plt Count 126 K/uL (130-400) L 02/28/17 08:05 MPV 8.3 fL (7.2-11.7) 02/28/17 08:05 Neut % (Auto) 73.2 % (50.0-75.0) 02/27/17 06:42 Lymph % (Auto) 18.4 % (20.0-40.0) L 02/27/17 06:42 [place] % (Auto) 7.6 % (0.0-10.0) 02/27/17 06:42 Eos % (Auto) 0.7 % (0.0-4.0) 02/27/17 06:42 Baso % (Auto) 0.1 % (0.0-2.0) 02/27/17 06:42 Neut # 6.5 K/uL (1.8-7.0) 02/27/17 06:42 Lymph # 1.6 K/uL (1.0-4.3) 02/27/17 06:42 [place] # 0.7 K/uL (0.0-0.8) 02/27/17 06:42 Eos # 0.1 K/uL (0.0-0.7) 02/27/17 06:42 Baso # 0.0 K/uL (0.0-0.2) 02/27/17 06:42 Neutrophils % (Manual) 66 % (50-75) 02/26/17 10:01 Band Neutrophils % 16 % (0-2) H* 02/26/17 10:01 Lymphocytes % (Manual) 10 % (20-40) L 02/26/17 10:01 Reactive Lymphs % 3 % (0-0) H 02/26/17 10:01 Monocytes % (Manual) 5 % (0-10) 02/26/17 10:01 Eosinophils % (Manual) 6 % (0-4) H 02/25/17 22:53 Platelet Estimate Normal (NORMAL) 02/26/17 10:01 Ovalocytes Slight 02/26/17 10:01 pO2 23 mm/Hg (30-55) L 02/25/17 22:40 VBG pH 7.42 (7.32-7.43) 02/25/17 22:40 VBG pCO2 47 mmHg (40-60) 02/25/17 22:40 VBG HCO3 27.4 mmol/L 02/25/17 22:40 VBG Total CO2 31.9 mmol/L (22-28) H 02/25/17 22:40 VBG O2 Sat (Calc) 53.3 % (40-65) 02/25/17 22:40 VBG Base Excess 5.1 mmol/L (0.0-2.0) H 02/25/17 22:40 VBG Potassium 5.0 mmol/L (3.6-5.2) 02/25/17 22:40 Sodium 136.0 mmol/l (132-148) 02/25/17 22:40 Chloride 102.0 mmol/L (98-107) 02/25/17 22:40 Glucose 118 mg/dl (65-105) H 02/25/17 22:40 Lactate 2.0 mmol/L (0.7-2.1) 02/25/17 22:40 FiO2 21.0 % 02/25/17 22:40 Sodium 139 mmol/L (132-148) 02/28/17 08:05 Potassium 3.7 mmol/L (3.6-5.2) 02/28/17 08:05 Chloride 103 mmol/L (98-107) 02/28/17 08:05 Carbon Dioxide 32 mmol/L (22-30) H 02/28/17 08:05 Anion Gap 8 (10-20) L 02/28/17 08:05 BUN 7 mg/dL (7-17) 02/28/17 08:05 Creatinine 0.5 mg/dL (0.7-1.2) L 02/28/17 08:05 Est GFR ( Amer) > 60 02/28/17 08:05 Est GFR (Non-Af Amer) > 60 02/28/17 08:05 Random Glucose 122 mg/dL (65-105) H 02/28/17 08:05 Calcium 7.6 mg/dl (8.6-10.4) L 02/28/17 08:05 Total Bilirubin 0.8 mg/dL (0.2-1.3) 02/27/17 06:42 AST 20 U/L (14-36) 02/27/17 06:42 ALT 41 U/L (9-52) 02/27/17 06:42 Alkaline Phosphatase 62 U/L (38-126) 02/27/17 06:42 Total Protein 5.8 g/dL (6.3-8.3) L 02/27/17 06:42 Albumin 2.7 g/dL (3.5-5.0) L D 02/27/17 06:42 Globulin 3.0 gm/dL (2.2-3.9) 02/27/17 06:42 Albumin/Globulin Ratio 0.9 (1.0-2.1) L 02/27/17 06:42 Venous Blood Potassium 5.0 mmol/L (3.6-5.2) 02/25/17 22:40 Urine Color Straw (YELLOW) 02/25/17 22:37 Urine Clarity Clear (Clear) 02/25/17 22:37 Urine pH 6.0 (5.0-8.0) 02/25/17 22:37 Ur Specific [place] 1.009 (1.003-1.030) 02/25/17 22:37 Urine Protein Negative mg/dL (NEGATIVE) 02/25/17 22:37 Urine Glucose (UA) Normal mg/dL (Normal) 02/25/17 22:37 Urine Ketones Negative mg/dL (NEGATIVE) 02/25/17 22:37 Urine Blood 2+ (NEGATIVE) H 02/25/17 22:37 Urine Nitrate Negative (NEGATIVE) 02/25/17 22:37 Urine Bilirubin Negative (NEGATIVE) 02/25/17 22:37 Urine Urobilinogen Normal mg/dL (0.2-1.0) 02/25/17 22:37 Ur Leukocyte Esterase Neg [place]/uL (Negative) 02/25/17 22:37 Urine WBC (Auto) < 1 /hpf (0-5) 02/25/17 22:37 Urine RBC (Auto) 11 /hpf (0-3) H 02/25/17 22:37 Ur Squamous Epith Cells 1 /hpf (0-5) 02/25/17 22:37 Urine Bacteria Rare (<OCC) 02/25/17 22:37 - Hospital Course Hospital Course: 51F admitted to surgical service 2/2 RUQ abdominal pain, CT abdomen positive for early acute appendicitis. Pt taken to OR with laparoscopic appendectomy performed. Pt tolerated procedure well. Did have some symptomatic anemia post op with dizziness. Pt given fluid resuscitation, electrolyte monitored/replaced as needed. Hemoglobin monitored, stabilized, not other signs of anemia present on POD #2. Pain well controlled. Pt stable and ready for discharge home. Dx: s/p laparoscopic appendectomy 2/2 Acute appendicitis Discharge Exam - Head Exam Head Exam: ATRAUMATIC, NORMAL INSPECTION, NORMOCEPHALIC - Eye Exam Eye Exam: EOMI, Normal appearance - Neck Exam Neck exam: Full Rom, Normal Inspection - Respiratory Exam Respiratory Exam: Clear to PA & Lateral, NORMAL BREATHING PATTERN, UNREMARKABLE - Cardiovascular Exam Cardiovascular Exam: REGULAR RHYTHM, +S1, +S2 - GI/Abdominal Exam GI & Abdominal Exam: Normal Bowel Sounds, Tenderness (mild, over surigcal incision sites, outer dressings removed, steristrips in place - clean/dry/intact ), Unremarkable - Extremities Exam Extremities exam: normal inspection - Neurological Exam Neurological exam: Alert, CN II-XII Intact, Oriented x3 - Psychiatric Exam Psychiatric exam: Normal Affect, Normal Mood - Skin Skin Exam: Dry, Intact, Normal Color, Warm Discharge Plan - Discharge Medications Prescriptions: Ciprofloxacin [Cipro] 500 mg PO BID #20 tab metroNIDAZOLE [Flagyl] 500 mg PO TID #21 tab oxyCODONE/Acetaminophen [Percocet 5/325 mg Tab] 1 tab PO Q4H PRN #14 tab PRN Reason: Pain, Mild (1-3) - Follow Up Plan Condition: FAIR Disposition: HOME/ ROUTINE Instructions: Ciprofloxacin (By mouth), Metronidazole (By mouth), Laparoscopic Appendectomy (DC) Additional Instructions: Please follow up with Dr. Tolbert in his office in 1 week (Call for appointment). The bandages that you have on now will fall off on their own, do not pull them off. Ok to shower with them, gently clean area with soap and water, do not scrub. Take antibiotics as directed, to completion Use pain meds as prescribed, sparingly Referrals: Hung Tolbert MD [Staff Provider] -
[2017-02-28] MEDS ORDERED: Pneumococcal 23-Valent Vaccine IM ONE (13:10)
[2017-02-28] MEDS ORDERED: Influenza Vaccine 60 mcg/0.5 mL SYR (4YR UP) IM ONE (13:11)
[2017-03-01] MEDS ORDERED: Influenza Vaccine 60 mcg/0.5 mL SYR (4YR UP) IM ONE (10:00)
[2017-03-01] MEDS ORDERED: Pneumococcal 23-Valent Vaccine IM ONE (10:00)
== END 2017-02-28 13:51 | disposition home or self-care (01) | DRG 883 ==
LOC: C.ER 21:32 → C.9E 02-26 02:41 → C.6T 02-26 09:47 → C.9S 02-26 11:28 → C.6T 02-26 20:23
PROVIDERS: ADMIT Surgery; ATTEND Surgery
PROC: 0DTJ4ZZ Resection of Appendix, Percutaneous Endoscopic Approach (ICD-10-PCS; principal; 2017-02-26 11:30)
DX: K35.80 Unspecified acute appendicitis (principal); D64.9 Anemia, unspecified; I10 Essential (primary) hypertension; Z98.51 Tubal ligation status

== ENCOUNTER 2018-05-13 07:22 | Emergency (ER) | payer SELFPAY ==
[2018-05-13 07:23] VITALS: BMI 31.2
[2018-05-13 07:34] VITALS: BP 146/83; PULSE 79; RESP 20; TEMP 98; O2SAT 97
[2018-05-13] MEDS ORDERED: Acetaminophen-Codeine 300/30 mg Tab PO STA (07:59)
--- NOTE | 2018-05-13 08:01 | C.PDOC ---
History Of Present Illness 53 year old female presents to ED with complaint of the left lower back pain for the past 3 days. Patient states that the pain radiates into her left buttock and is worse with sitting. She describes the pain as sharp and intermittent. Patient states that she took a Motrin 400 mg at 5am. Patient is a poor historian. She denies any weakness or numbness. POOR HISTORIAN NEW ONSET L LOWER BACK PAIN X 3 DAYS. RADIATION L BUTTOCK WORSE W [place]. INTERMIT, SHARP. NO TRAUMA. DENIES OTHER ASSOC SX. S/P MOTRIN 400 MG @ 0500 EXAM NONTOXIC BACK NO FOCAL TEND. LIMITED FULL FLEX DUE TO PAIN. ATRAUM. NEURO INTACT GAIT WNL SKIN NEG REMAINDER NEG Time Seen by Provider: 05/13/18 07:36 Chief Complaint (Nursing): Back Pain History Per: Patient History/Exam Limitations: other (poor historian) Onset/Duration Of Symptoms: Days (3), Intermittent Episodes Current Symptoms Are (Timing): Still Present Quality Of Discomfort: Sharp Associated Symptoms: denies: New Weakness, New Numbness Exacerbating Factor(s): Sitting Past Medical History Reviewed: Historical Data, Nursing Documentation, Vital Signs Vital Signs: Last Vital Signs Temp 98 F 05/13/18 07:24 Pulse 79 05/13/18 07:24 Resp 20 05/13/18 07:24 BP 146/83 05/13/18 07:24 Pulse Ox 97 05/13/18 07:24 - Medical History PMH: HTN Denies: Chronic Kidney Disease Surgical History: No Surg Hx - [facility] Procedures RESECTION OF APPENDIX, PERCUTANEOUS ENDOSCOPIC APPROACH (02/26/17) Family History: States: Unknown Family Hx - Social History Hx Tobacco Use: No Hx Alcohol Use: No (social) Hx Substance Use: No - Immunization History Hx Tetanus Toxoid Vaccination: No Hx Influenza Vaccination: No Hx Pneumococcal Vaccination: No Review Of Systems Constitutional: Negative for: Fever, Chills, Weakness Cardiovascular: Negative for: Chest Pain, Palpitations Respiratory: Negative for: Cough, Shortness of Breath Gastrointestinal: Negative for: Nausea, Vomiting, Abdominal Pain Musculoskeletal: Positive for: Back Pain (left lower back pain radiating into left buttock) Neurological: Negative for: Weakness, Numbness, Dizziness Physical Exam - Physical Exam Appears: Well, Non-toxic, No Acute Distress Skin: Normal Color, Warm, Dry Head: Atraumatic, Normacephalic Neck: Normal ROM, Supple Respiratory: Decreased Breath Sounds, No Accessory Muscle Use, No Rales, No Rhonchi, No Wheezing, Other (NARD) Gastrointestinal/Abdominal: Soft, No Tenderness Back: Decreased ROM (limited full flex due to pain, atraumatic), No Other (Focal tenderness) Extremity: Capillary Refill (< 2 seconds) Extremity: Bilateral: Atraumatic, Normal Color And Temperature Pulses: Left Radial: Normal, Right Radial: Normal Neurological/Psych: Oriented x3, Normal Speech, Normal Cognition Gait: Steady ED Course And Treatment O2 Sat by Pulse Oximetry: 97 (RA) Progress Note: Patient given Decadron PO, Neurontin PO, and Tylenol PO. Patient is resting comfortably, and is in no acute distress. Patient was instructed to follow up with [facility]linic in 1-2 days for further evaluation. Patient is advised to return to ED if symptoms persist or worsen. Disposition Counseled Patient/Family Regarding: Diagnosis, Need For Followup, Rx Given - Disposition Referrals: [facility] [Outside] [facility] [Outside] Disposition: HOME/ ROUTINE Disposition Time: 08:01 Condition: IMPROVED Prescriptions: Cyclobenzaprine [Flexeril] 10 mg PO TID #15 tab Gabapentin [Neurontin] 300 mg PO TID #30 cap Naproxen 250 mg PO BID #30 tablet Instructions: Sciatica (DC) Forms: [facility] (Telugu), Work Excuse Print Language: AMHARIC - Clinical Impression Clinical Impression: Sciatica - Scribe Statement The provider has reviewed the documentation as recorded by the Scribe (Kesha Estrella) All medical record entries made by the Scribe were at my direction and personally dictated by me. I have reviewed the chart and agree that the record accurately reflects my personal performance of the history, physical exam, medical decision making, and the department course for this patient. I have also personally directed, reviewed, and agree with the discharge instructions and disposition.
[2018-05-13] MEDS ORDERED: Acetaminophen-Codeine 300/30 mg Tab PO ONE (08:07)
== END 2018-05-13 08:25 | disposition home or self-care (01) ==
LOC: C.ER 07:22
DX: M54.30 Sciatica, unspecified side (principal); I10 Essential (primary) hypertension
CPT/HCPCS: 99285; J8540

== ENCOUNTER 2018-05-21 09:52 | Emergency (ER) | payer OTHER ==
[2018-05-21 09:52] VITALS: BMI 31.2
[2018-05-21 10:12] VITALS: RESP 18
--- NOTE | 2018-05-21 12:35 | C.PDOC ---
History Of Present Illness 53 year old female presents to the ED for evaluation of left lower bag and left hip pain that has been radiating down her leg for around7-8 days. Patient states she sustained a fall around one month ago and landed onto her buttocks. She was seen in the ED on 05/13 and given Flexeril, Naproxen and Neurontin. She did not undergo imaging at the time. Patient has been taking the pain medications without significant relief and presents requesting an XR. She denies fever, chills, abdominal pain, dysuria, hematuria, urinary/bowel incontinence, extremity numbness/weakness. Time Seen by Provider: 05/21/18 10:14 Chief Complaint (Nursing): Back Pain History Per: Patient History/Exam Limitations: no limitations Onset/Duration Of Symptoms: Days (7-8) Current Symptoms Are (Timing): Still Present Quality Of Discomfort: "Pain" Previous Symptoms: Back Pain Associated Symptoms: denies: Incontinence, New Weakness, New Numbness Past Medical History Reviewed: Historical Data, Nursing Documentation, Vital Signs Vital Signs: Last Vital Signs Temp 98.2 F 05/21/18 10:11 Pulse 77 05/21/18 10:11 Resp 18 05/21/18 10:11 BP 150/86 05/21/18 10:11 Pulse Ox 95 05/21/18 10:11 - Medical History PMH: HTN Denies: Chronic Kidney Disease Surgical History: No Surg Hx - [facility] Procedures RESECTION OF APPENDIX, PERCUTANEOUS ENDOSCOPIC APPROACH (02/26/17) Family History: States: Unknown Family Hx - Social History Hx Tobacco Use: No Hx Alcohol Use: No (social) Hx Substance Use: No - Immunization History Hx Tetanus Toxoid Vaccination: No Hx Influenza Vaccination: No Hx Pneumococcal Vaccination: No Review Of Systems Constitutional: Negative for: Fever, Chills Gastrointestinal: Negative for: Abdominal Pain Genitourinary: Negative for: Dysuria, Incontinence, Hematuria Musculoskeletal: Positive for: Back Pain (left-sided, lower ), Leg Pain, Other (left hip pain ) Neurological: Negative for: Weakness, Numbness Physical Exam - Physical Exam Appears: Non-toxic, Other (in mild-moderate pain ) Skin: Normal Color, Warm, Dry, No Rash Head: Atraumatic, Normacephalic Eye(s): bilateral: Normal Inspection Oral Mucosa: Moist Neck: Supple Chest: Symmetrical, No Deformity, No Tenderness Cardiovascular: Rhythm Regular, No Murmur Respiratory: Normal Breath Sounds, No Rales, No Rhonchi, No Wheezing Gastrointestinal/Abdominal: Soft, No Tenderness, No Guarding, No Rebound Back: No CVA Tenderness, No Vertebral Tenderness, Paraspinal Tenderness (left-si ded, lumbar ) Extremity: Tenderness (left gluteal ), Capillary Refill (less than 2 seconds ) Neurological/Psych: Oriented x3, Normal Speech, Normal Cognition, Normal Motor, Normal Sensation ED Course And Treatment O2 Sat by Pulse Oximetry: 95 (on RA ) Pulse Ox Interpretation: Normal Progress Note: Sacrum and Coccyx XR, and Hip/Pelvic XR ordered and reviewed. Flexeril PO, Toradol IM and Prednisone PO given. Disposition Counseled Patient/Family Regarding: Studies Performed, Diagnosis, Need For Followup, Rx Given - Disposition Referrals: [facility] at [facility] [Outside] Disposition: HOME/ ROUTINE Disposition Time: 12:35 Condition: STABLE Additional Instructions: FOLLOW UP WITH YOUR DOCTOR/CLINIC IN 1-2 DAYS USE MEDICATIONS NEEDED RETURN TO EMERGENCY ROOM IF SYMPTOMS BECOME WORSE SEGUIR CON FRENCH MDICO / CLNICA EN 1-2 SMALL USAR MEDICAMENTOS NOAH SE NECESITE VUELVA A LA ANA DE EMERGENCIA SI LOS SNTOMAS SE HACEN PEOR Prescriptions: Diazepam [Valium] 2 mg PO BID PRN #14 tablet PRN Reason: musle spasm Naproxen [Naprosyn] 1 tab PO BID PRN #25 tab PRN Reason: Pain predniSONE [predniSONE Tab] 40 mg PO DAILY #8 tab Instructions: Sciatica (DC), Radiculopathy (DC) Forms: [employer] (Icelandic) Print Language: SERBIAN - Clinical Impression Clinical Impression: Low back pain, Sciatica, left side - Scribe Statement The provider has reviewed the documentation as recorded by the Scribe (Robyn Koch) Provider Attestation: All medical record entries made by the Scribe were at my direction and personally dictated by me. I have reviewed the chart and agree that the record accurately reflects my personal performance of the history, physical exam, medical decision making, and the department course for this patient. I have also personally directed, reviewed, and agree with the discharge instructions and disposition.
[2018-05-21 13:18] VITALS: BP 136/87; PULSE 72; TEMP 98.1
--- NOTE | 2018-05-21 13:52 | RAD ---
PROCEDURE: Left Hip X-ray Radiographs. HISTORY: LEFT HIP PAIN COMPARISON: None. FINDINGS: BONES: Pelvic ring is intact. There is no acute displaced fracture or bone destruction. Bone alignment is normal. JOINTS: The hip joint spaces are preserved. There is mild degenerative osteoarthrosis in the sacroiliac joints. SOFT TISSUES: Normal. OTHER FINDINGS: None. IMPRESSION: No acute displaced fracture or dislocation. No significant degenerative osteoarthrosis in the hip joints.
--- NOTE | 2018-05-21 13:54 | RAD ---
Date of service: 05/21/2018 PROCEDURE: Radiographs of the Sacrum and Coccyx HISTORY: LEFT LOW BACK/SACRAL PAIN COMPARISON: None available. TECHNIQUE: Frontal and lateral views of the sacrum and coccyx FINDINGS: BONES: There is no acute displaced fracture or bone destruction. Bone alignment is normal. The sacrococcygeal angulation is normal. SACROILIAC JOINTS: There is mild degenerative osteoarthrosis in the sacroiliac joints. OTHER FINDINGS: The presacral soft tissues are normal. IMPRESSION: No acute displaced fracture or dislocation. 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
[2018-05-21 16:29] VITALS: O2SAT 95
== END 2018-05-21 13:10 | disposition home or self-care (01) ==
LOC: C.ER 09:52
DX: M54.42 Lumbago with sciatica, left side (principal)
CPT/HCPCS: 72220; 73502; 96372; 99284; J1885

== ENCOUNTER 2018-07-23 07:47 | Outpatient (CLI) | payer OTHER | END 2018-07-23 07:48 | disposition home or self-care (01) | LOC: C.LAB 07:47 | DX: M06.9 Rheumatoid arthritis, unspecified (principal); E03.9 Hypothyroidism, unspecified ==

== ENCOUNTER 2018-08-23 12:02 | Emergency (ER) | payer OTHER ==
[2018-08-23 12:02] VITALS: BMI 31.2
[2018-08-23 12:08] VITALS: BP 119/78; RESP 20; O2SAT 97
[2018-08-23 13:17] VITALS: PULSE 84; TEMP 99.2
--- NOTE | 2018-08-23 13:30 | C.PDOC ---
History Of Present Illness 53 y/o female with htn c/o fever and lower abdominal pain with nausea since last night. +dysuria. no vomiting. 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 denies: Sore Throat, Cough, Vomiting, Diarrhea Past Medical History Reviewed: Historical Data, Nursing Documentation, Vital Signs Vital Signs: Last Vital Signs Temp 99.2 F 08/23/18 13:16 Pulse 84 08/23/18 13:16 Resp 20 08/23/18 12:05 BP 119/78 08/23/18 12:05 Pulse Ox 97 08/23/18 12:05 Primary Care Provider: FAMILY PROVIDER,NO - Medical History PMH: HTN Denies: Chronic Kidney Disease Surgical History: No Surg Hx - [facility] Procedures RESECTION OF APPENDIX, PERCUTANEOUS ENDOSCOPIC APPROACH (02/26/17) Family History: States: Unknown Family Hx - Social History Hx Tobacco Use: No Hx Alcohol Use: No (social) Hx Substance Use: No - Immunization History Hx Tetanus Toxoid Vaccination: No Hx Influenza Vaccination: No Hx Pneumococcal Vaccination: No Review Of Systems Constitutional: Positive for: Fever. Negative for: Chills, Weakness Respiratory: Negative for: Cough Gastrointestinal: Positive for: Nausea, Abdominal Pain (lower abdomen). Negative for: Vomiting Genitourinary: Positive for: Dysuria. Negative for: Hematuria, Vaginal Discharge, Vaginal Bleeding Physical Exam - Physical Exam Appears: Well, Non-toxic, No Acute Distress, Other Skin: Normal Color, Warm, Dry Head: Atraumatic, Normacephalic Neck: Normal ROM, Supple Chest: Symmetrical, No Deformity Cardiovascular: Rhythm Regular, No Murmur Respiratory: No Accessory Muscle Use, No Rales, No Rhonchi, No Wheezing Gastrointestinal/Abdominal: Bowel Sounds (normoactive), Soft, Tenderness (mild suprapubic tenderness), No Distention, No Guarding, No Rebound Back: No CVA Tenderness Extremity: Capillary Refill (<2 seconds) Neurological/Psych: Oriented x3, Normal Speech, Normal Cognition ED Course And Treatment O2 Sat by Pulse Oximetry: 97 (in RA) Pulse Ox Interpretation: Normal Medical Decision Making Medical Decision Making: Impression: 53 y/o female with htn c/o fever and lower abdominal pain with nausea since last night. Initial Plan: Tylenol PO U-culture UA Disposition Counseled Patient/Family Regarding: Studies Performed, Diagnosis, Need For Follo wup, Rx Given - Disposition Referrals: [facility] [Outside] Disposition: HOME/ ROUTINE Disposition Time: 14:52 Condition: GOOD Additional Instructions: Beber ms mayer. [place] Tylenol para el dolor. Seguimiento en la clnica mdica de Jonathon en 1-2 ford. Regrese a la victor manuel de emergencias para cualquier sntoma peor Drink increased water. Take Tylenol for pain. Follow up in [facility] medical clinic in 1 -2 days. Return to ER for any worse symptoms. Prescriptions: Acetaminophen [Tylenol 325mg tab] 650 mg PO Q4 #50 tab Nitrofurantoin Macrocrystals [Macrobid] 100 mg PO BID #14 cap Instructions: Urinary Tract Infection, Adult (DC) Forms: Gen Discharge Inst Bhutanese, [employer] (Bhutanese) Print Language: URDU - Clinical Impression Clinical Impression: UTI (urinary tract infection) - PA / INSEAMER / Resident Statement MD/DO has reviewed & agrees with the documentation as recorded. (Kesha Estrella) - Scribe Statement The provider has reviewed the documentation as recorded by the Scribe (Kesha Estrella) All medical record entries made by the Scribe were at my direction and personally dictated by me. I have reviewed the chart and agree that the record accurately reflects my personal performance of the history, physical exam, medical decision making, and the department course for this patient. I have also personally directed, reviewed, and agree with the discharge instructions and disposition.
[2018-08-23 14:00] LABS: SQUAMOUS EPITHIAL 2 /hpf (0-5); URINE BILIRUBIN NEGATIVE (NEGATIVE); URINE BLOOD 2+ (NEGATIVE); URINE CLARITY Clear (Clear); URINE COLOR Yellow (YELLOW); URINE GLUCOSE (UA) NORMAL (Normal); URINE LEUKOCYTE ESTERASE NEG Leu/uL (Negative); URINE PROTEIN NEGATIVE (NEGATIVE); URINE UROBILINOGEN NORMAL mg/dL (0.2-1.0)
== END 2018-08-23 14:58 | disposition home or self-care (01) ==
LOC: C.ER 12:02
DX: N39.0 Urinary tract infection, site not specified (principal)